=== PATIENT | female | born 1980 | race Caucasian/White ===

== ENCOUNTER 2016-07-20 21:52 | Inpatient (IN) ==
[2016-07-20] MEDS ORDERED: diazePAM 10 MG/2 ML SYRINGE IVP STA (22:13)
--- NOTE | 2016-07-20 22:14 | Emergency Department Note ---
Disposition Clinical Impression: Alcohol withdrawal Disposition: Admitted As Inpatient Condition: Good General Adult HPI - General Chief complaint: ED Alcohol Abuse Stated complaint: ETOH detox Time Seen by Provider: 07/20/16 22:09 Source: patient, family Limitations: no limitations - History of Present Illness Pain Scale: 0 - Related Data Home Medications Medication Instructions Recorded Confirmed Escitalopram [Lexapro] 10 mg PO DAILY 04/26/16 05/26/16 Furosemide [Lasix] 80 mg PO QDPC 04/26/16 05/26/16 Lactulose 20 gm PO BID 04/26/16 05/26/16 Spironolactone [Aldactone] 100 mg PO DAILY 04/26/16 05/26/16 hydrOXYzine HCl [Hydroxyzine HCl] 25 mg PO TID 04/26/16 05/26/16 Previous Rx's Medication Instructions Recorded Dicyclomine [Bentyl] 10 - 20 mg PO QID PRN #30 capsule 04/26/16 predniSONE [PredniSONE] 40 mg PO DAILY #10 tablet 05/23/16 Allergies Allergy/AdvReac Type Severity Reaction Status Date / Time Iodinated Contrast- Oral and Allergy Hives Verified 05/23/16 22:53 IV Dye Past Medical History - Past Medical History Medical history: Reports: other Surgical history: Reports: no surgical history Psychiatric history: Reports: anxiety, depression STAIN DIPPER history: Reports: no STAIN DIPPER history - Social History Smoking Status: Former smoker Smokeless Tobacco Status: No Alcohol use: Reports: none, heavy, recent Drug use: Reports: none Physical Exam - General Limitations: no limitations General appearance: alert Course Vital Signs Temperature 98.0 F 07/20/16 21:53 Pulse Rate 88 07/20/16 21:53 Respiratory Rate 16 07/20/16 21:53 Blood Pressure 129/89 07/20/16 21:53 O2 Sat by Pulse Oximetry 95 07/20/16 21:53 Temperature 97.7 F 07/21/16 01:56 Pulse Rate 86 07/21/16 01:56 Respiratory Rate 18 07/21/16 01:56 Blood Pressure 135/85 07/21/16 01:56 O2 Sat by Pulse Oximetry 100 07/21/16 01:56 Oxygen Delivery Oxygen Delivery Room Air Medical Decision Making - Lab Data Result diagrams: 07/20/16 23:00 07/20/16 23:00 Lab Results 07/20/16 07/20/16 07/20/16 Range/Units 23:00 23:00 23:00 WBC 5.1 (4.3-11.1) K/mcL RBC 4.12 (3.82-4.97) M/mcL Hgb 15.0 (11.5-15.4) g/dL Hct 42.2 (35.3-44.9) % MCV 102.4 H (83.0-100.0) fL MCH 36.4 H (28.0-33.3) pg MCHC 35.5 (31.6-35.5) g/dL RDW 13.9 (11.5-14.5) % Plt Count 138 L (140-400) K/mcL MPV 9.6 (9.4-12.4) fL Seg Neutrophils % 25.1 % Lymphocytes % 64.1 % Monocytes % 9.2 % Eosinophils % 0.8 % Basophils % 0.6 % Neutrophils # 1.3 L (1.6-8.9) K/mcL Lymphocytes # 3.3 (0.6-4.6) K/mcL Monocytes # 0.5 (0.0-1.3) K/mcL Eosinophils # 0.0 (0.0-0.6) K/mcL Basophils # 0.0 (0.0-0.2) K/mcL Sodium 143 (136-145) mEq/L Potassium 3.2 L (3.5-4.5) mEq/L Chloride 110 H (98-109) mEq/L Carbon Dioxide 20 (19-29) mEq/L BUN 4 L (7-20) mg/dL Creatinine 0.74 (0.57-1.11) mg/dL Est GFR ( Amer) > 60 (> 60) Est GFR (Non-Af Amer) > 60 (> 60) BUN/Creatinine Ratio 5 L (6-26) Glucose 109 H (70-99) mg/dL Calculated Osmolality 293 (280-300) Calcium 8.8 (8.6-10.8) mg/dL Magnesium 1.6 (1.6-2.6) mg/dL Total Bilirubin 0.5 (0.2-1.2) mg/dL AST 44 H (5-34) Units/L ALT 30 (0-55) Units/L Alkaline Phosphatase 122 (38-126) Units/L Serum Total Protein 6.6 (6.0-8.3) g/dL Albumin 3.3 L (3.5-5.0) g/dL Globulin 3.3 (2.4-3.5) g/dL Albumin/Globulin Ratio 1.0 L (1.1-2.2) Serum , Qual (Negative) Ethyl Alcohol (0-10) mg/dL 07/20/16 07/20/16 Range/Units 23:00 23:00 WBC (4.3-11.1) K/mcL RBC (3.82-4.97) M/mcL Hgb (11.5-15.4) g/dL Hct (35.3-44.9) % MCV (83.0-100.0) fL MCH (28.0-33.3) pg MCHC (31.6-35.5) g/dL RDW (11.5-14.5) % Plt Count (140-400) K/mcL MPV (9.4-12.4) fL Seg Neutrophils % % Lymphocytes % % Monocytes % % Eosinophils % % Basophils % % Neutrophils # (1.6-8.9) K/mcL Lymphocytes # (0.6-4.6) K/mcL Monocytes # (0.0-1.3) K/mcL Eosinophils # (0.0-0.6) K/mcL Basophils # (0.0-0.2) K/mcL Sodium (136-145) mEq/L Potassium (3.5-4.5) mEq/L Chloride (98-109) mEq/L Carbon Dioxide (19-29) mEq/L BUN (7-20) mg/dL Creatinine (0.57-1.11) mg/dL Est GFR ( Amer) (> 60) Est GFR (Non-Af Amer) (> 60) BUN/Creatinine Ratio (6-26) Glucose (70-99) mg/dL Calculated Osmolality (280-300) Calcium (8.6-10.8) mg/dL Magnesium (1.6-2.6) mg/dL Total Bilirubin (0.2-1.2) mg/dL AST (5-34) Units/L ALT (0-55) Units/L Alkaline Phosphatase (38-126) Units/L Serum Total Protein (6.0-8.3) g/dL Albumin (3.5-5.0) g/dL Globulin (2.4-3.5) g/dL Albumin/Globulin Ratio (1.1-2.2) Serum , Qual Negative (Negative) Ethyl Alcohol 360 H (0-10) mg/dL Attestation Statement - Attestation Attestation: I examined this patient and my medical decision-making was reviewed with the CROSSING WATCHMAN/PA/Advanced Practice Nurse/Resident Physician. I agree with the documented findings, disposition and treatment plan as described except to the extent set forth below. [id number] time provided Patient requests alcohol detox. She drinks a fifth of vodka daily for years. She appears intoxicated on exam. Is tearful. Father at bedside.
--- NOTE | 2016-07-20 22:22 | Emergency Department Note ---
Disposition Clinical Impression: Alcohol withdrawal Qualifiers: Complication of substance-induced condition: uncomplicated Qualified Code(s): F10.230 - Alcohol dependence with withdrawal, uncomplicated Disposition: Admitted As Inpatient Condition: Good Alcohol HPI - General Chief Complaint: ED Alcohol Abuse Stated Complaint: ETOH detox Time Seen by Provider: 07/20/16 22:09 Source: patient, family Limitations: no limitations Nursing Notes Reviewed: Yes Vital Signs Reviewed: Yes - History of Present Illness HPI Narrative: 35-year-old female presents to the ED requesting alcohol detoxification. She has a long history over 10 years of alcoholism and drinks every day. She drinks one fifth of vodka every single day. She admits to drinking today. She has a history of alcoholic liver cirrhosis and takes Lasix every day. She denies any history of GI bleeding. She denies any recent vomiting or illness. She denies any new abdominal pain. She denies any fevers or chills. She denies any suicidal or homicidal ideation. In the past she has had some suicidal ideation writing a suicide note was admitted in [place] and was released. Currently she has none of this. She is with her father and he states they already have alcohol rehabilitation set up in [place] but she needs to go through detoxification first. Patient has no other complaints or concerns today. - Related Data Home Medications Medication Instructions Recorded Confirmed Escitalopram [Lexapro] 10 mg PO DAILY 04/26/16 05/26/16 Furosemide [Lasix] 80 mg PO QDPC 04/26/16 05/26/16 Lactulose 20 gm PO BID 04/26/16 05/26/16 Spironolactone [Aldactone] 100 mg PO DAILY 04/26/16 05/26/16 hydrOXYzine HCl [Hydroxyzine HCl] 25 mg PO TID 04/26/16 05/26/16 Previous Rx's Medication Instructions Recorded Dicyclomine [Bentyl] 10 - 20 mg PO QID PRN #30 capsule 04/26/16 predniSONE [PredniSONE] 40 mg PO DAILY #10 tablet 05/23/16 Allergies Allergy/AdvReac Type Severity Reaction Status Date / Time Iodinated Contrast- Oral and Allergy Hives Verified 05/23/16 22:53 IV Dye All systems ED: reviewed and negative except as stated. Constitutional: Denies: fever Cardiovascular: Denies: chest pain Respiratory: Denies: cough, dyspnea Gastrointestinal: Denies: nausea, vomiting, melena, hematochezia Musculoskeletal: Denies: back pain Integumentary: Reports: rash (On her legs from her reported vasculitis) Neurological: Denies: headache, weakness, numbness Psychiatric: Reports: depression. Denies: suicidal thoughts, homicidal thoughts , auditory hallucinations, visual hallucinations Past Medical History - Past Medical History Medical history: Reports: other Surgical history: Reports: no surgical history Psychiatric history: Reports: anxiety, depression INFORMATICS NURSE SPECIALIST history: Reports: no INFORMATICS NURSE SPECIALIST history - Social History Smoking Status: Former smoker Smokeless Tobacco Status: No Alcohol use: Reports: none, heavy, recent Drug use: Reports: none Physical Exam General: Patient is intermittently tearful but alert and oriented Cardiovascular: Regular rate and rhythm. S1, S2. No murmurs, rubs or gallops. Respiratory: Breath sounds clear bilaterally. No wheezing, rales or rhonchi. No resp distress Abdomen: Abdomen is soft without any guarding, rebound or rigidity. She does have some mild right upper quadrant tenderness with a palpable liver edge. Negative Brooks's. Normal bowel sounds throughout. No signs of trauma Eyes: Conjunctiva clear without scleral icterus, pupils equally reactive without any nystagmus HENT: Normocephalic, no signs of head injury. No oral mucosal lesions. Moist mucous membranes Neuro: No facial asymmetry, stands and inability to independently Musculoskeletal: No joint tenderness or swelling Skin: On the lower extremity there are small less than 2 mm scab-type lesions without any signs of saline as her infection. Psych: Tearful, depressed, withdrawn - General Limitations: no limitations General appearance: alert Course Course Narrative: Presents requesting alcohol detoxification so she can get into her rehabilitation that already set up in [place]. She drank today and her alcohol level was about 0.35. She has been given Ativan and Valium in the ED. She has been comfortable. She reports last time she with through from alcohol she had a seizure and I feel inpatient management is safest for her. Labs including CBC, BMP unremarkable. She did have a slight macrocytosis likely from Thiamine deficiency and she was given a banana bag. Discussed with the hospitalist who accepts for admission. Vital Signs Temperature 98.0 F 07/20/16 21:53 Pulse Rate 88 07/20/16 21:53 Respiratory Rate 16 07/20/16 21:53 Blood Pressure 129/89 07/20/16 21:53 O2 Sat by Pulse Oximetry 95 07/20/16 21:53 Temperature 98.0 F 07/21/16 01:04 Pulse Rate 88 07/20/16 21:53 Respiratory Rate 16 07/21/16 01:04 Blood Pressure 129/89 07/21/16 01:04 O2 Sat by Pulse Oximetry 95 07/20/16 21:53 Oxygen Delivery Oxygen Delivery Room Air Alcohol - Lab Data Result diagrams: 07/20/16 23:00 07/20/16 23:00 Lab Results 07/20/16 07/20/16 07/20/16 Range/Units 23:00 23:00 23:00 WBC 5.1 (4.3-11.1) K/mcL RBC 4.12 (3.82-4.97) M/mcL Hgb 15.0 (11.5-15.4) g/dL Hct 42.2 (35.3-44.9) % MCV 102.4 H (83.0-100.0) fL MCH 36.4 H (28.0-33.3) pg MCHC 35.5 (31.6-35.5) g/dL RDW 13.9 (11.5-14.5) % Plt Count 138 L (140-400) K/mcL MPV 9.6 (9.4-12.4) fL Seg Neutrophils % 25.1 % Lymphocytes % 64.1 % Monocytes % 9.2 % Eosinophils % 0.8 % Basophils % 0.6 % Neutrophils # 1.3 L (1.6-8.9) K/mcL Lymphocytes # 3.3 (0.6-4.6) K/mcL Monocytes # 0.5 (0.0-1.3) K/mcL Eosinophils # 0.0 (0.0-0.6) K/mcL Basophils # 0.0 (0.0-0.2) K/mcL Sodium 143 (136-145) mEq/L Potassium 3.2 L (3.5-4.5) mEq/L Chloride 110 H (98-109) mEq/L Carbon Dioxide 20 (19-29) mEq/L BUN 4 L (7-20) mg/dL Creatinine 0.74 (0.57-1.11) mg/dL Est GFR ( Amer) > 60 (> 60) Est GFR (Non-Af Amer) > 60 (> 60) BUN/Creatinine Ratio 5 L (6-26) Glucose 109 H (70-99) mg/dL Calculated Osmolality 293 (280-300) Calcium 8.8 (8.6-10.8) mg/dL Magnesium 1.6 (1.6-2.6) mg/dL Total Bilirubin 0.5 (0.2-1.2) mg/dL AST 44 H (5-34) Units/L ALT 30 (0-55) Units/L Alkaline Phosphatase 122 (38-126) Units/L Serum Total Protein 6.6 (6.0-8.3) g/dL Albumin 3.3 L (3.5-5.0) g/dL Globulin 3.3 (2.4-3.5) g/dL Albumin/Globulin Ratio 1.0 L (1.1-2.2) Serum , Qual (Negative) Ethyl Alcohol (0-10) mg/dL 07/20/16 07/20/16 Range/Units 23:00 23:00 WBC (4.3-11.1) K/mcL RBC (3.82-4.97) M/mcL Hgb (11.5-15.4) g/dL Hct (35.3-44.9) % MCV (83.0-100.0) fL MCH (28.0-33.3) pg MCHC (31.6-35.5) g/dL RDW (11.5-14.5) % Plt Count (140-400) K/mcL MPV (9.4-12.4) fL Seg Neutrophils % % Lymphocytes % % Monocytes % % Eosinophils % % Basophils % % Neutrophils # (1.6-8.9) K/mcL Lymphocytes # (0.6-4.6) K/mcL Monocytes # (0.0-1.3) K/mcL Eosinophils # (0.0-0.6) K/mcL Basophils # (0.0-0.2) K/mcL Sodium (136-145) mEq/L Potassium (3.5-4.5) mEq/L Chloride (98-109) mEq/L Carbon Dioxide (19-29) mEq/L BUN (7-20) mg/dL Creatinine (0.57-1.11) mg/dL Est GFR ( Amer) (> 60) Est GFR (Non-Af Amer) (> 60) BUN/Creatinine Ratio (6-26) Glucose (70-99) mg/dL Calculated Osmolality (280-300) Calcium (8.6-10.8) mg/dL Magnesium (1.6-2.6) mg/dL Total Bilirubin (0.2-1.2) mg/dL AST (5-34) Units/L ALT (0-55) Units/L Alkaline Phosphatase (38-126) Units/L Serum Total Protein (6.0-8.3) g/dL Albumin (3.5-5.0) g/dL Globulin (2.4-3.5) g/dL Albumin/Globulin Ratio (1.1-2.2) Serum , Qual Negative (Negative) Ethyl Alcohol 360 H (0-10) mg/dL - EKG Data EKG results narrative: EKG shows a sinus rhythm with a rate of 80 beats a minute. No ST changes. No ischemic T-wave changes. Normal intervals.
[2016-07-20] MEDS ORDERED: Thiamine (B-1) 100 MG, Folic Acid 1 MG, MVI, adult with vitamin K 10 ML in 0.9 % Sodi... IVPB SCH (23:00)
[2016-07-20] MEDS: Thiamine (B-1) 100 MG, Folic Acid 1 MG, MVI, adult with vitamin K 10 ML in 0.9 % Sodi... IVPB SCH (23:35)
[2016-07-20 23:36] LABS: Hematocrit 42.2 % (35.3-44.9); Mean Corpuscular HGB Conc 35.5 g/dL (31.6-35.5); Mean Corpuscular Hemoglobin 36.4 pg (28.0-33.3); Mean Corpuscular Volume 102.4 fL (83.0-100.0); Mean Platelet Volume 9.6 fL (9.4-12.4); Neutrophils # 1.3 K/mcL (1.6-8.9); Platelet Count 138 K/mcL (140-400); Red Blood Count 4.12 M/mcL (3.82-4.97); Red Cell Distribution Width 13.9 % (11.5-14.5); Segmented Neutrophils % 25.1 %
[2016-07-20 23:37] LABS: Basophils % 0.6 %; Eosinophils % 0.8 %; Lymphocytes # 3.3 K/mcL (0.6-4.6); Lymphocytes % 64.1 %; Monocytes # 0.5 K/mcL (0.0-1.3); Monocytes % 9.2 %
[2016-07-21 00:13] LABS: Alanine Aminotransferase 30 Units/L (0-55); Alkaline Phosphatase 122 Units/L (38-126); Aspartate Amino Transferase 44 Units/L (5-34); BUN/Creatinine Ratio 5 (6-26); Bilirubin,Total 0.5 mg/dL (0.2-1.2); Blood Urea Nitrogen 4 mg/dL (7-20); Calcium 8.8 mg/dL (8.6-10.8); Carbon Dioxide 20 mEq/L (19-29); Chloride 110 mEq/L (98-109); Glucose 109 mg/dL (70-99); Osmolality,Calculated 293 (280-300); Potassium 3.2 mEq/L (3.5-4.5); Sodium 143 mEq/L (136-145); Total Protein 6.6 g/dL (6.0-8.3); eGFR For African Americans > 60 (> 60); eGFR For Non-African Americans > 60 (> 60)
[2016-07-21 00:14] LABS: Albumin 3.3 g/dL (3.5-5.0); Globulin 3.3 g/dL (2.4-3.5)
[2016-07-21] MEDS ORDERED: *HR* LORazepam 2 MG/ML VIAL IVP ONE (00:34)
[2016-07-21] MEDS ORDERED: *HR* LORazepam 2 MG/ML VIAL IVP PRN ×2 (02:32→18:50)
--- NOTE | 2016-07-21 02:37 | Internal Med History&Physical ---
Date of Encounter: 07/21/16 Time of Encounter: 02:33 Assessment and Plan (1) Alcohol withdrawal Current visit: Yes Status: Acute Patient will be started on CIWA protocol. Seizure precautions. Telemetry monitoring. Give the patient thiamine and folic acid. Hydrate with normal saline 75 mls an hour. She hypokalemia and that will be replaced. She received heparin and famotidine for DVT and peptic ulcer disease prophylaxis respectively. Qualifiers: Complication of substance-induced condition: uncomplicated Qualified Code(s ): F10.230 - Alcohol dependence with withdrawal, uncomplicated Internal Medicine - H&P: HPI Chief complaint: alcohol withdrawal History of present illness: Ms. Carmona is a 35 year old female with an alcoholic drinks a pint of vodka every day presents to the emergency room today for help with alcohol withdrawal. Patient is willing to go to rehab facility but the requesting patient was thereafter being hospitalized for the initial withdrawal period. Patients usually starts with wrong within 4 hours after last drink. Last link is about 6 PM 8 hours prior to my interview. Patient is having shakiness. She mentioned that she had a similar hospitalization at the outside facility for similar purposes. She was hospitalized there for 5 days for alcohol withdrawal. Mentioned that course was complicated by seizure. Unfortunately after she went home to start drinking alcohol again. She mentioned that this time she is motivated with alcohol. She denies any suicidal thoughts. Denies any reason febrile illness. Past Med Surg Social Fam HX - Past Medical History Medical history: other Psychiatric history: anxiety, depression - Past Surgical History Surgical History: no surgical history - Social History Smoking Status: Former smoker Smokeless Tobacco Status: No Alcohol use: none, heavy, recent Drug use: none Internal Medicine - H&P: Meds Dicyclomine [Bentyl] 10 - 20 mg PO QID PRN #30 capsule 04/26/16 [Rx] Escitalopram [Lexapro] 10 mg PO DAILY 04/26/16 [History] Furosemide [Lasix] 80 mg PO QDPC 04/26/16 [History] Lactulose 20 gm PO BID 04/26/16 [History] Spironolactone [Aldactone] 100 mg PO DAILY 04/26/16 [History] hydrOXYzine HCl [Hydroxyzine HCl] 25 mg PO TID 04/26/16 [History] predniSONE [PredniSONE] 40 mg PO DAILY #10 tablet 05/23/16 [Rx] Allergies Iodinated Contrast- Oral and IV Dye Allergy (Verified 05/23/16 22:53) Hives All Systems PM: A 10-system review of systems was performed and is negative for pertinent findings except as documented above in the HPI. Review of systems: 10 point review of systems is negative except for HPI - Constitutional Vitals: Temp Pulse Resp BP Pulse Ox 97.7 F 86 18 135/85 100 07/21/16 01:56 07/21/16 01:56 07/21/16 01:56 07/21/16 01:56 07/21/16 01:56 Exam: Gen.: patient is alert oriented times 3 not in distress cardiac: Normal S1, S2, no additional sounds or murmurs chest: Clear to auscultation Abdomen: Soft, non-tender, non-distended. No rebound lower extremity Lax calf muscles no swelling Neuro: no focal deficits Internal Med - H&P Results - Labs CBC & Chem 7: 07/20/16 23:00 07/20/16 23:00
[2016-07-21] MEDS ORDERED: Water for inj. (sterile) 10 ML IV ONE (02:44)
[2016-07-21] MEDS: *HR* LORazepam 2 MG/ML VIAL IVP PRN ×4 (02:46→23:49)
[2016-07-21] MEDS: Ondansetron 4 MG/2 ML VIAL IVP PRN (02:53)
[2016-07-21] MEDS: Famotidine 20 MG/2 ML VIAL IVP SCH ×2 (05:36→17:46)
[2016-07-21] MEDS: *HR* Heparin 5,000 UNIT/ML VIAL SQ SCH ×2 (05:36→17:46)
[2016-07-21] MEDS: D5% in 0.9% NACL 1,000 ML IVC SCH (05:37)
[2016-07-21] MEDS: Folic Acid 1 MG TABLET PO SCH (08:06)
[2016-07-21] MEDS: Thiamine (B-1) 100 MG, Folic Acid 1 MG, MVI, adult with vitamin K 10 ML in 0.9 % Sodi... IVPB SCH (17:45)
[2016-07-21] MEDS ORDERED: Thiamine (B-1) 100 MG, Folic Acid 1 MG, MVI, adult with vitamin K 10 ML in 0.9 % Sodi... IVPB SCH (18:00)
--- NOTE | 2016-07-21 18:49 | Event Note ---
Date of Encounter: 07/21/16 Time of Encounter: 10:30 Patient seen and examined. On examination, patient initially asleep but awakened easily to voice. Patient stating she feels very fatigued. She states that her hands are shaking but otherwise she is feeling okay. I have received her medical records from [facility]. She was admitted for SI and alcohol intoxication from 06/28/16 until 07/05/16. She had a multidisciplinary team treatment during that admission. There were no documentations of her having DTs or any seizures. Unfortunately, patient relapsed on alcohol shortly after discharge. She states that she is motivated to stop drinking. Hypotension noted, treating with IV fluids. Hypokalemia also noted in his being addressed. Patient drinks a pint of vodka daily, will initiate Librium at this time and monitor very closely. Seizure precautions.
[2016-07-22] MEDS: *HR* Heparin 5,000 UNIT/ML VIAL SQ SCH ×2 (05:29→17:52)
[2016-07-22] MEDS: Famotidine 20 MG/2 ML VIAL IVP SCH ×2 (05:36→16:55)
[2016-07-22] MEDS: *HR* LORazepam 2 MG/ML VIAL IVP PRN ×2 (05:45→16:56)
[2016-07-22 06:53] LABS: Basophils % 0.3 %; Mean Platelet Volume 10.3 fL (9.4-12.4); Red Cell Distribution Width 13.2 % (11.5-14.5)
[2016-07-22 06:56] LABS: Eosinophils % 0.8 %; Hematocrit 38.5 % (35.3-44.9); Hemoglobin 13.5 g/dL (11.5-15.4); Immature Platelets 4.2 % (1.1-6.1); Lymphocytes # 2.1 K/mcL (0.6-4.6); Lymphocytes % 54.9 %; Mean Corpuscular HGB Conc 35.1 g/dL (31.6-35.5); Mean Corpuscular Hemoglobin 36.3 pg (28.0-33.3); Mean Corpuscular Volume 103.5 fL (83.0-100.0); Monocytes # 0.4 K/mcL (0.0-1.3); Monocytes % 10.4 %; Neutrophils # 1.3 K/mcL (1.6-8.9); Red Blood Count 3.72 M/mcL (3.82-4.97); Segmented Neutrophils % 33.6 %
[2016-07-22 07:10] LABS: BUN/Creatinine Ratio 9 (6-26); Calcium 8.1 mg/dL (8.6-10.8); Carbon Dioxide 24 mEq/L (19-29); Chloride 108 mEq/L (98-109); Glucose 73 mg/dL (70-99); Osmolality,Calculated 284 (280-300); Sodium 139 mEq/L (136-145); eGFR For African Americans > 60 (> 60); eGFR For Non-African Americans > 60 (> 60)
[2016-07-22 07:13] LABS: Blood Urea Nitrogen 5 mg/dL (7-20)
[2016-07-22 07:39] LABS: Platelet Count 95 K/mcL (140-400)
[2016-07-22 07:42] LABS: Platelet Estimate Decreased (Normal)
[2016-07-22] MEDS: D5% in 0.9% NACL 1,000 ML IVC SCH ×2 (09:25→09:31)
[2016-07-22] MEDS: Folic Acid 1 MG TABLET PO SCH (09:31)
--- NOTE | 2016-07-22 12:34 | Electrocardiograph Report ---
[place] [id number] Test Date: 2016-07-20 Pat Name: Mecca Carmona Department: 105 Room: 3B Gender: F Quotation Clerk: KIRBY : 1980 Requested By: Saul Haskins Order Number: [id number] Reading MD: Jose Gray Measurements Intervals [place] Rate: 80 P: 42 MI: 180 QRS: -14 QRSD: 100 T: 32 QT: 393 QTc: 429 Interpretive Statements SINUS RHYTHM WITH SINUS ARRHYTHMIA Electronically Signed On 07-22-2016 12:32:58 EDT by Jose Gray
[2016-07-22] MEDS: Ondansetron 4 MG/2 ML VIAL IVP PRN (13:00)
--- NOTE | 2016-07-22 16:30 | Internal Med Progress Note ---
Date of Encounter: 07/22/16 Time of Encounter: 10:30 - Assessment and plan (1) Alcohol withdrawal Current Visit: Yes Status: Acute Assessment and plan: Patient stating this is day 2 since she has last drank. She states she is feeling better today and she has been able to eat. Started her on Librium yesterday, appears to be beneficial as her tremors have lessened since yesterday. She is getting regular doses of lorazepam. We will continue to monitor her CIWA scoring closely and maintain seizure precautions and aspiration precautions. Hypotension resolved, continue IV fluids. I have received her medical records from [facility]. She was admitted for SI and alcohol intoxication from 06/28/16 until 07/05/16. She had a multidisciplinary team treatment during that admission. There were no documentations of her having DTs or any seizures. Unfortunately, patient relapsed on alcohol shortly after discharge. She states that she is motivated to stop drinking. Patient drinks a pint of vodka daily, Librium was initiated yesterday. Qualifiers: Complication of substance-induced condition: uncomplicated Qualified Code(s ): F10.230 - Alcohol dependence with withdrawal, uncomplicated (2) Hypokalemia Current Visit: Yes Status: Resolved (3) DVT prophylaxis Current Visit: Yes Status: Acute Assessment and plan: Subcutaneous heparin - Subjective Interval history: Patient seen and examined. On examination, patient asleep in bed. Patient awakened easily to voice and stated that she was starting to feel better. She states she ate breakfast. - Constitutional Vitals: Temp Pulse Resp BP Pulse Ox 98.1 F 63 16 110/74 98 07/22/16 15:34 07/22/16 15:34 07/22/16 15:34 07/22/16 15:34 07/22/16 15:34 General appearance: Present: A&O X 3, pleasant, no acute distress, answers questions appropriately - Head Head exam: Present: atraumatic, normocephalic - Eye Eye exam: Present: PERRL, conjuntiva pink, sclera anicteric Pupils: Present: PERRL - Neck Neck exam general surgery: Present: supple, trachea midline. Absent: lymphadenopathy - Respiratory Respiratory exam: Present: decreased breath sounds. Absent: accessory muscle use, rales, respiratory distress, rhonchi, wheezes - Cardiovascular Cardiovascular exam: Present: RRR, +S1, +S2. Absent: diastolic murmur, gallop, rubs, systolic murmur - GI/Abdominal GI/Abdominal exam: Present: normal bowel sounds, soft, no peritoneal signs. Absent: distended, tenderness - Extremities Exam Extremities exam: Present: warm, radial pulses palpable and symetrical. Absent : calf tenderness, cyanotic, pedal edema - Neurological Exam Neurological exam: Present: alert, CN II-XII intact, oriented X3, no focal deficits, strengths equal and symetr throughout. Absent: pronater drift, facial droop, speech deficit - Skin Skin exam: Present: dry, intact, pallor, warm Internal Medicine: Result - Labs CBC & Chem 7: 07/22/16 06:15 07/22/16 06:15 Labs: Short CBC 07/22/16 Range/Units 06:15 WBC 3.9 L (4.3-11.1) K/mcL Hgb 13.5 D (11.5-15.4) g/dL Hct 38.5 (35.3-44.9) % Plt Count 95 L (140-400) K/mcL Neutrophils # 1.3 L (1.6-8.9) K/mcL BMP 07/22/16 06:15 Sodium 139 Potassium 4.0 Chloride 108 Carbon Dioxide 24 BUN 5 L Creatinine 0.58 Glucose 73 Calcium 8.1 L Consult Discharge Plan - Plan Referrals: LEIA LICEA D.O. [Primary Care Provider] -
[2016-07-22] MEDS: Thiamine (B-1) 100 MG, Folic Acid 1 MG, MVI, adult with vitamin K 10 ML in 0.9 % Sodi... IVPB SCH (16:55)
[2016-07-22] MEDS ORDERED: Ibuprofen 400 MG TABLET PO ONE (19:55)
[2016-07-23] MEDS: *HR* LORazepam 2 MG/ML VIAL IVP PRN ×4 (00:29→18:58)
[2016-07-23 04:53] LABS: Basophils % 0.5 %; Hematocrit 36.7 % (35.3-44.9); Hemoglobin 12.7 g/dL (11.5-15.4); Immature Granulocytes % 0.3 % (0-4); Immature Platelets 4.3 % (1.1-6.1); Lymphocytes # 1.8 K/mcL (0.6-4.6); Lymphocytes % 45.9 %; Mean Corpuscular HGB Conc 34.6 g/dL (31.6-35.5); Mean Corpuscular Hemoglobin 36.2 pg (28.0-33.3); Mean Corpuscular Volume 104.6 fL (83.0-100.0); Mean Platelet Volume 10.4 fL (9.4-12.4); Monocytes # 0.3 K/mcL (0.0-1.3); Monocytes % 8.3 %; Neutrophils # 1.8 K/mcL (1.6-8.9); Red Blood Count 3.51 M/mcL (3.82-4.97); Red Cell Distribution Width 13.5 % (11.5-14.5)
[2016-07-23 04:54] LABS: Platelet Count 89 K/mcL (140-400)
[2016-07-23 05:06] LABS: Albumin 2.8 g/dL (3.5-5.0); BUN/Creatinine Ratio 8 (6-26); Calcium 8.5 mg/dL (8.6-10.8); Carbon Dioxide 24 mEq/L (19-29); Chloride 107 mEq/L (98-109); Glucose 69 mg/dL (70-99); Osmolality,Calculated 280 (280-300); Potassium 3.7 mEq/L (3.5-4.5); Sodium 137 mEq/L (136-145); eGFR For African Americans > 60 (> 60); eGFR For Non-African Americans > 60 (> 60)
[2016-07-23] MEDS: *HR* Heparin 5,000 UNIT/ML VIAL SQ SCH ×2 (05:06→18:11)
[2016-07-23 05:08] LABS: Blood Urea Nitrogen 5 mg/dL (7-20)
[2016-07-23] MEDS: Famotidine 20 MG/2 ML VIAL IVP SCH ×2 (05:57→18:11)
[2016-07-23] MEDS: Folic Acid 1 MG TABLET PO SCH (08:06)
[2016-07-23] MEDS ORDERED: Furosemide 20 MG/2 ML VIAL IVP ONE (08:46)
--- NOTE | 2016-07-23 10:01 | Internal Med Progress Note ---
Date of Encounter: 07/23/16 Time of Encounter: 09:15 - Assessment and plan (1) Alcohol withdrawal Current Visit: Yes Status: Acute Assessment and plan: Now on day 3 since her last drink. She states she had a rough night and was not able to sleep. Attempted Ambien last night without relief. Will give 4mg ativan at HS tonight if needed. She is still tolerating a regular diet. Mild pedal edema noted- IVF stopped and a one time dose of furosemide was given. She is on furosemide and spironolactone at home- holding these for now, will monitor fluid status. Continue Librium with IV Ativan as needed. Continue CIWA scoring with seizure precautions. Blood pressure is more stable today and she is currently normotensive. I have received her medical records from [facility]. She was admitted for SI and alcohol intoxication from 06/28/16 until 07/05. She had a multidisciplinary team treatment during that admission. There were no documentations of her having DTs or any seizures. Unfortunately, patient relapsed on alcohol shortly after discharge. She states that she is motivated to stop drinking and has a list of resources and she is going to call a place in the am. Patient drinks a pint of vodka daily. Qualifiers: Complication of substance-induced condition: uncomplicated Qualified Code(s ): F10.230 - Alcohol dependence with withdrawal, uncomplicated (2) Hypokalemia Current Visit: Yes Status: Resolved (3) DVT prophylaxis Current Visit: Yes Status: Acute Assessment and plan: Subcutaneous heparin (4) Lower extremity edema Current Visit: Yes Status: Acute Assessment and plan: mild; non pitting. IVF stopped and she was given a one time dose of IV lasix. Unclear why she is on Lasix and Spironolactone at home. Lungs remain clear to auscultation bilaterally. No ascites or other signs of fluid overload- will monitor. - Subjective Interval history: Patient seen and examined. On examination, patient resting supine in bed. She states she had a rough night and did not sleep very well. She states her shakiness is slightly better. She states she ate her breakfast and is endorsing a normal PO intake. She is looking over her list of resources, and is going to call a place in the am tomorrow. - Constitutional Vitals: Temp Pulse Resp BP Pulse Ox 97.9 F 83 16 122/81 98 07/23/16 06:55 07/23/16 06:55 07/23/16 06:55 07/23/16 06:55 07/23/16 06:55 General appearance: Present: A&O X 3, pleasant, no acute distress, answers questions appropriately - Head Head exam: Present: atraumatic, normocephalic - Eye Eye exam: Present: PERRL, conjuntiva pink, sclera anicteric Pupils: Present: PERRL - Neck Neck exam general surgery: Present: supple, trachea midline. Absent: lymphadenopathy - Respiratory Respiratory exam: Present: CTAB. Absent: accessory muscle use, rales, respiratory distress, rhonchi, wheezes - Cardiovascular Cardiovascular exam: Present: RRR, +S1, +S2. Absent: diastolic murmur, gallop, rubs, systolic murmur - GI/Abdominal GI/Abdominal exam: Present: normal bowel sounds, soft, no peritoneal signs. Absent: distended, tenderness - Extremities Exam Extremities exam: Present: pedal edema, warm, radial pulses palpable and symetrical. Absent: calf tenderness, cyanotic - Neurological Exam Neurological exam: Present: alert, CN II-XII intact, normal gait, oriented X3, no focal deficits, strengths equal and symetr throughout. Absent: pronater drift, facial droop, speech deficit - Skin Skin exam: Present: dry, intact, pallor, warm Internal Medicine: Result - Labs CBC & Chem 7: 07/23/16 04:03 07/23/16 04:03 Labs: Short CBC 07/23/16 Range/Units 04:03 WBC 4.0 L (4.3-11.1) K/mcL Hgb 12.7 (11.5-15.4) g/dL Hct 36.7 (35.3-44.9) % Plt Count 89 L (140-400) K/mcL Neutrophils # 1.8 (1.6-8.9) K/mcL BMP 07/23/16 04:03 Sodium 137 Potassium 3.7 Chloride 107 Carbon Dioxide 24 BUN 5 L Creatinine 0.61 Glucose 69 L Calcium 8.5 L Liver Function 07/23/16 Range/Units 04:03 Albumin 2.8 L (3.5-5.0) g/dL Consult Discharge Plan - Plan Referrals: LEIA LICEA D.O. [Primary Care Provider] -
[2016-07-23] MEDS ORDERED: *HR* LORazepam 2 MG/ML VIAL IVP PRN (10:28)
[2016-07-23] MEDS: Lactulose Oral Soln 20 GM/30 ML UDC PO SCH ×2 (12:47→21:29)
[2016-07-23] MEDS: hydrOXYzine pamoate 25 MG CAPSULE PO SCH ×3 (15:28→21:29)
[2016-07-23] MEDS: Thiamine (B-1) 100 MG, Folic Acid 1 MG, MVI, adult with vitamin K 10 ML in 0.9 % Sodi... IVPB SCH (18:10)
[2016-07-24] MEDS ORDERED: Water for inj. (sterile) 10 ML IV ONE ×2 (00:33→05:05)
[2016-07-24] MEDS: *HR* LORazepam 2 MG/ML VIAL IVP PRN ×3 (00:34→09:46)
[2016-07-24 01:58] LABS: Bilirubin,Urine Negative (Negative); Blood,Urine Large (Negative); Clarity,Urine Clear (Clear); Color,Urine Yellow (Yellow); Glucose,Urine (UA) Normal (Normal); Ketones,Urine Negative (Negative); Leukocyte Esterase,Urine Negative (Negative); Nitrite,Urine Negative (Negative); Protein,Urine Negative (Neg-Trace); Specific Gravity,Urine 1.008 (1.010-1.025); Urobilinogen,Urine Normal (Normal)
[2016-07-24 02:01] LABS: Bacteria,Urine Few per hpf (None-Few); Hyaline Casts,Urine None Seen per lpf (None-Few); RBC,Urine 15-30 per hpf (0-3); Squamous Epithelial Cell,Urine Many per lpf (None-Few); WBC,Urine 0-3 per hpf (0-3)
[2016-07-24 04:57] LABS: BUN/Creatinine Ratio 12 (6-26); Blood Urea Nitrogen 8 mg/dL (7-20); Calcium 9.5 mg/dL (8.6-10.8); Carbon Dioxide 23 mEq/L (19-29); Chloride 106 mEq/L (98-109); Glucose 79 mg/dL (70-99); Osmolality,Calculated 281 (280-300); Potassium 4.3 mEq/L (3.5-4.5); Sodium 137 mEq/L (136-145); eGFR For African Americans > 60 (> 60); eGFR For Non-African Americans > 60 (> 60)
[2016-07-24] MEDS: *HR* Heparin 5,000 UNIT/ML VIAL SQ SCH ×2 (06:29→18:37)
[2016-07-24] MEDS: Famotidine 20 MG/2 ML VIAL IVP SCH ×2 (06:30→18:38)
[2016-07-24] MEDS: Folic Acid 1 MG TABLET PO SCH (09:45)
[2016-07-24] MEDS: Ondansetron 4 MG/2 ML VIAL IVP PRN (09:46)
[2016-07-24] MEDS: Lactulose Oral Soln 20 GM/30 ML UDC PO SCH ×2 (09:46→20:20)
[2016-07-24] MEDS: hydrOXYzine pamoate 25 MG CAPSULE PO SCH ×3 (09:47→23:33)
[2016-07-24] MEDS ORDERED: *HR* LORazepam 2 MG/ML VIAL IVP PRN (12:16)
--- NOTE | 2016-07-24 16:46 | Internal Med Progress Note ---
Date of Encounter: 07/24/16 Time of Encounter: 10:30 - Assessment and plan (1) Alcohol withdrawal Current Visit: Yes Status: Acute Assessment and plan: Now on day 4 since her last drink. She states she slept much better last night. She is still tolerating a regular diet. Mild pedal edema noted yesterday and her IVFs were stopped and a one time dose of furosemide was given. Pedal edema has resolved. She is on furosemide and spironolactone at home- holding these for now, will monitor fluid status. Continue Librium with IV Ativan as needed although need to decrease and stop the Ativan usage to ensure that she'll be seizure-free upon discharge. Continue CIWA scoring with seizure precautions. Blood pressure is more stable today and she is currently normotensive. I have received her medical records from [facility]. She was admitted for SI and alcohol intoxication from 06/28/16 until 07/05/16. She had a multidisciplinary team treatment during that admission. There were no documentations of her having DTs or any seizures. Unfortunately, patient relapsed on alcohol shortly after discharge. She states that she is motivated to stop drinking and has a list of resources and she states she has decided on a place in [place] that will take her in 2 weeks. She states this will give her enough time to get her affairs in order prior to the transfer. Patient drinks a pint of vodka daily. Will observe overnight, and likely discharge tomorrow pending clinical outcomes. Qualifiers: Complication of substance-induced condition: uncomplicated Qualified Code(s ): F10.230 - Alcohol dependence with withdrawal, uncomplicated (2) Hypokalemia Current Visit: Yes Status: Resolved (3) DVT prophylaxis Current Visit: Yes Status: Acute Assessment and plan: Subcutaneous heparin (4) Lower extremity edema Current Visit: Yes Status: Resolved - Subjective Interval history: Patient seen and examined. On examination, patient sitting upright in bed talking on the phone with a prospective rehab clinic in [place]. She states that she was to go to rehabilitation in [place] to get a fresh start. She states she is eating and drinking well. She states that she slept well last night. She states she is still very worried about having another seizure. - Constitutional Vitals: Temp Pulse Resp BP Pulse Ox 97.5 F L 79 14 106/74 97 07/24/16 15:10 07/24/16 15:10 07/24/16 15:10 07/24/16 15:10 07/24/16 15:10 General appearance: Present: A&O X 3, pleasant, no acute distress, answers questions appropriately - Head Head exam: Present: atraumatic, normocephalic - Eye Eye exam: Present: PERRL, conjuntiva pink, sclera anicteric Pupils: Present: PERRL - Neck Neck exam general surgery: Present: supple, trachea midline. Absent: lymphadenopathy - Respiratory Respiratory exam: Present: CTAB. Absent: accessory muscle use, rales, respiratory distress, rhonchi, wheezes - Cardiovascular Cardiovascular exam: Present: RRR, +S1, +S2. Absent: diastolic murmur, gallop, rubs, systolic murmur - GI/Abdominal GI/Abdominal exam: Present: normal bowel sounds, soft, no peritoneal signs. Absent: distended, tenderness - Extremities Exam Extremities exam: Present: warm, radial pulses palpable and symetrical. Absent : calf tenderness, cyanotic, pedal edema - Neurological Exam Neurological exam: Present: alert, CN II-XII intact, normal gait, oriented X3, no focal deficits, strengths equal and symetr throughout. Absent: pronater drift, facial droop, speech deficit - Expanded Neurological Exam Neurological exam expanded: Present: protecting the airway Patient oriented to: Present: person, place, time Speech: Present: fluid speech Cranial Nerves: EOM's intact PM: Normal, gag reflex PM: Normal Neuro motor strength exam: LUE: 5, RUE: 5, LLE: 5, RLE: 5 Coma Scale Eye Opening: Spontaneous Coma Scale Motor Response: Obeys Commands Coma Scale Verbal Response: Oriented Coma Scale Total: 15 - Psychiatric Psychiatric exam: Present: normal affect, normal mood. Absent: suicidal ideation - Skin Skin exam: Present: dry, intact, normal color, warm Internal Medicine: Result - Labs CBC & Chem 7: 07/23/16 04:03 07/24/16 04:31 Labs: BMP 07/24/16 04:31 Sodium 137 Potassium 4.3 Chloride 106 Carbon Dioxide 23 BUN 8 Creatinine 0.67 Glucose 79 Calcium 9.5 Urine 07/24/16 Range/Units 01:45 Urine Color Yellow (Yellow) Urine Clarity Clear (Clear) Urine pH 7.0 (5.0-8.0) pH Units Ur Specific [place] 1.008 L (1.010-1.025) Urine Protein Negative (Neg-Trace) mg/dL Urine Glucose (UA) Normal (Normal) mg/dL Consult Discharge Plan - Plan Referrals: LEIA LICEA D.O. [Primary Care Provider] -
[2016-07-25] MEDS: Famotidine 20 MG/2 ML VIAL IVP SCH (06:45)
[2016-07-25] MEDS: *HR* Heparin 5,000 UNIT/ML VIAL SQ SCH ×2 (06:49→17:34)
[2016-07-25] MEDS ORDERED: *HR* LORazepam 2 MG/ML VIAL IVP PRN ×3 (08:42)
--- NOTE | 2016-07-25 08:45 | Internal Med Progress Note ---
Date of Encounter: 07/25/16 Time of Encounter: 08:43 - Assessment and plan (1) Alcohol withdrawal Current Visit: Yes Status: Acute Assessment and plan: Now on day 5 since her last drink. Had an alcohol level of 360 upon admission Continue Librium taper with IV Ativan as needed Admitted to [facility] for SI and alcohol intoxication from 06/28/16 until . She had a multidisciplinary team treatment during that admission. May discharge to a rehabilitation facility in [place] tomorrow if stable High risk due to high alcohol tolerance Qualifiers: Complication of substance-induced condition: uncomplicated Qualified Code(s ): F10.230 - Alcohol dependence with withdrawal, uncomplicated (2) Leukopenia Current Visit: Yes Status: Acute Assessment and plan: Nonspecific Qualifiers: Leukopenia type: other Qualified Code(s): D72.818 - Other decreased white blood cell count (3) Hypokalemia Current Visit: Yes Status: Resolved Assessment and plan: Repleted (4) DVT prophylaxis Current Visit: Yes Status: Acute Assessment and plan: Subcutaneous heparin - Subjective Interval history: Complains of constant shakiness in her hands, according to nursing staff she is being confused at times but is very coherent at the moment oriented 3, denies any pain, no abdominal pain, no dysuria. No fevers. No chest pain or shortness of breath - Constitutional Vitals: Temp Pulse Resp BP Pulse Ox 97.8 F 67 17 111/77 97 07/25/16 07:37 07/25/16 07:37 07/25/16 07:37 07/25/16 07:37 07/25/16 07:37 General appearance: Present: A&O X 3, pleasant, no acute distress, answers questions appropriately - Head Head exam: Present: atraumatic, normocephalic - Eye Eye exam: Present: PERRL, conjuntiva pink, sclera anicteric Pupils: Present: PERRL - Neck Neck exam general surgery: Present: supple, trachea midline. Absent: lymphadenopathy - Respiratory Respiratory exam: Present: CTAB. Absent: accessory muscle use, rales, rhonchi, wheezes - Cardiovascular Cardiovascular exam: Present: RRR, +S1, +S2. Absent: diastolic murmur, gallop, rubs, systolic murmur - GI/Abdominal GI/Abdominal exam: Present: normal bowel sounds, soft, no peritoneal signs. Absent: distended, tenderness - Extremities Exam Extremities exam: Present: warm, radial pulses palpable and symetrical. Absent : calf tenderness, cyanotic, pedal edema Additional comments: Persistent tremors in upper extremities/hands - Neurological Exam Neurological exam: Present: CN II-XII intact, oriented X3, no focal deficits. Absent: pronater drift, facial droop, speech deficit - Skin Skin exam: Present: dry, intact Internal Medicine: Result - Labs CBC & Chem 7: 07/23/16 04:03 07/24/16 04:31 Consult Discharge Plan - Plan Referrals: LEIA LICEA D.O. [Primary Care Provider] -
[2016-07-25] MEDS: Lactulose Oral Soln 20 GM/30 ML UDC PO SCH ×2 (09:51→21:33)
[2016-07-25] MEDS: Thiamine (B-1) 100 MG TABLET PO SCH (09:52)
[2016-07-25] MEDS: Folic Acid 1 MG TABLET PO SCH (09:52)
[2016-07-25] MEDS: hydrOXYzine pamoate 25 MG CAPSULE PO SCH ×3 (09:52→21:32)
[2016-07-25] MEDS: Famotidine 20 MG TABLET PO SCH (17:35)
[2016-07-26] MEDS: *HR* Heparin 5,000 UNIT/ML VIAL SQ SCH (06:13)
[2016-07-26] MEDS: Famotidine 20 MG TABLET PO SCH (06:18)
[2016-07-26 07:18] LABS: Basophils % 0.8 %; Monocytes % 9.8 %
[2016-07-26 07:20] LABS: Eosinophils # 0.1 K/mcL (0.0-0.6); Eosinophils % 0.9 %; Hematocrit 38.6 % (35.3-44.9); Immature Granulocytes % 0.4 % (0-4); Immature Platelets 6.5 % (1.1-6.1); Lymphocytes # 2.1 K/mcL (0.6-4.6); Lymphocytes % 39.6 %; Mean Corpuscular HGB Conc 33.7 g/dL (31.6-35.5); Mean Corpuscular Hemoglobin 36.2 pg (28.0-33.3); Mean Corpuscular Volume 107.5 fL (83.0-100.0); Mean Platelet Volume 10.9 fL (9.4-12.4); Monocytes # 0.5 K/mcL (0.0-1.3); Neutrophils # 2.6 K/mcL (1.6-8.9); Red Blood Count 3.59 M/mcL (3.82-4.97); Red Cell Distribution Width 13.8 % (11.5-14.5); Segmented Neutrophils % 48.5 %
[2016-07-26 07:27] LABS: BUN/Creatinine Ratio 16 (6-26); Blood Urea Nitrogen 11 mg/dL (7-20); Calcium 9.7 mg/dL (8.6-10.8); Carbon Dioxide 22 mEq/L (19-29); Chloride 105 mEq/L (98-109); Glucose 54 mg/dL (70-99); Osmolality,Calculated 279 (280-300); Potassium 4.2 mEq/L (3.5-4.5); Sodium 136 mEq/L (136-145); eGFR For African Americans > 60 (> 60); eGFR For Non-African Americans > 60 (> 60)
[2016-07-26] MEDS: hydrOXYzine pamoate 25 MG CAPSULE PO SCH (08:11)
[2016-07-26] MEDS: Lactulose Oral Soln 20 GM/30 ML UDC PO SCH (08:11)
[2016-07-26] MEDS: Folic Acid 1 MG TABLET PO SCH (08:11)
[2016-07-26] MEDS: Thiamine (B-1) 100 MG TABLET PO SCH (08:12)
[2016-07-26 09:01] LABS: Platelet Count 86 K/mcL (140-400)
--- NOTE | 2016-07-26 09:57 | Discharge Summary ---
Date of Encounter: 07/26/16 Time of Encounter: 09:47 - Discharge Diagnosis (1) Alcohol withdrawal Priority: Primary Status: Acute Qualifiers: Complication of substance-induced condition: uncomplicated Qualified Code(s ): F10.230 - Alcohol dependence with withdrawal, uncomplicated (2) Leukopenia Priority: Secondary Status: Acute Comments: Resolved Qualifiers: Leukopenia type: other Qualified Code(s): D72.818 - Other decreased white blood cell count (3) Hypokalemia Priority: Secondary Status: Resolved Comments: Repleted (4) DVT prophylaxis Priority: Secondary Status: Acute - Discharge Medications Prescriptions: Chlordiazepoxide [Librium] 25 mg PO DAILY 10 Days Folic Acid 1 mg PO DAILY 30 Days hydrOXYzine pamoate [HydrOXYzine Pamoate] 25 mg PO TID #20 capsule Thiamine (B-1) [Vitamin B-1] 100 mg PO DAILY 30 Days Home Medications: Escitalopram [Lexapro] 10 mg PO DAILY 04/26/16 [History] Spironolactone [Aldactone] 100 mg PO DAILY 04/26/16 [History] hydrOXYzine HCl [Hydroxyzine HCl] 25 mg PO TID 04/26/16 [History] Cholecalciferol (Vitamin D3) [Vitamin D3] 1,000 unit PO DAILY 07/21/16 [History] Cyanocobalamin (Vitamin B-12) [Vitamin B12] 1,000 mcg PO DAILY 07/21/16 [History ] Furosemide [Lasix] 40 mg PO DAILY 07/21/16 [History] Pantoprazole Sodium [Protonix] 40 mg PO DAILY 07/21/16 [History] Chlordiazepoxide [Librium] 25 mg PO DAILY 10 Days 07/26/16 [Rx] Folic Acid 1 mg PO DAILY 30 Days 07/26/16 [Rx] Thiamine (B-1) [Vitamin B-1] 100 mg PO DAILY 30 Days 07/26/16 [Rx] hydrOXYzine pamoate [HydrOXYzine Pamoate] 25 mg PO TID #20 capsule 07/26/16 [Rx] Allergies/Adverse Reactions: Allergies Iodinated Contrast- Oral and IV Dye Allergy (Verified 07/21/16 13:58) Difficulty Breathing Date of admission: 07/25/16 10:32 Primary care physician: LEIA LICEA D.O. - Patient Status Disposition: Transfer Inpatient Rehab Fac Condition: Good - Discharge Instructions Follow Up With: LEIA LICEA D.O. [Primary Care Provider] - Additional Instructions: Follow-up with primary care physician within the next 7 days. Continue Librium taper as prescribed. Hydroxyzine as needed. Continue rehabilitation - Diet and Activity Activity: increase activity as tolerated Diet: regular diet Hospital course: Ms. Carmona is a 35 year old female with a past medical history of alcohol abuse, drinks a pint of vodka every day presented to the emergency room for help with alcohol withdrawal. Last drink was about 6 PM 8 hours prior to admission. Patient was shaking. She mentioned that she had a similar hospitalization at the outside facility for similar purposes. She was hospitalized there for 5 days for alcohol withdrawal. Mentioned that course was complicated by seizure. Unfortunately after she went home to start drinking alcohol again. She mentioned that this time she is motivated to stop drinking alcohol. The patient was started on thiamine, folic acid, multivitamins, Librium taper and Ativan as needed. The patient's tremors have a slowly improved, she has been on a high dose of Librium up to 100 mg 3 times a day and will require very slow taper. Patient is willing to go to rehab facility down in [place]. - Time Spent with Patient Total time spent providing and/or coordinating discharge services: Greater than 30 minutes (40 min) - Constitutional Vitals: Temp Pulse Resp BP Pulse Ox 98.2 F 77 17 101/67 98 07/26/16 07:54 07/26/16 07:54 07/26/16 07:54 07/26/16 07:54 07/26/16 07:54 General appearance: Present: A&O X 3, pleasant, no acute distress, answers questions appropriately - Head Head exam: Present: atraumatic, normocephalic - Eye Eye exam: Present: PERRL, conjuntiva pink, sclera anicteric Pupils: Present: PERRL - Neck Neck exam general surgery: Present: supple, trachea midline. Absent: lymphadenopathy - Respiratory Respiratory exam: Present: CTAB. Absent: accessory muscle use, rales, rhonchi, wheezes - Cardiovascular Cardiovascular exam: Present: RRR, +S1, +S2. Absent: diastolic murmur, gallop, rubs, systolic murmur - GI/Abdominal GI/Abdominal exam: Present: normal bowel sounds, soft, no peritoneal signs. Absent: distended, tenderness - Extremities Exam Extremities exam: Present: warm, radial pulses palpable and symetrical. Absent : calf tenderness, cyanotic, pedal edema Additional comments: Essential tremors present in both hands - Neurological Exam Neurological exam: Present: CN II-XII intact, oriented X3, no focal deficits. Absent: pronater drift, facial droop, speech deficit - Skin Skin exam: Present: dry, intact
--- NOTE | 2016-07-26 10:09 | Physician Discharge Referral ---
ExtendedCare Referral Info Provider in Charge after Transfer: PCP Institutional Level of Care: Skilled - Diagnosis (1) Alcohol withdrawal Status: Acute (2) Leukopenia Status: Acute (3) Hypokalemia Status: Resolved (4) DVT prophylaxis Status: Acute - Transfer Medications Prescriptions: Chlordiazepoxide [Librium] 25 mg PO DAILY 10 Days Folic Acid 1 mg PO DAILY 30 Days hydrOXYzine pamoate [HydrOXYzine Pamoate] 25 mg PO TID #20 capsule Thiamine (B-1) [Vitamin B-1] 100 mg PO DAILY 30 Days Home Medications: Escitalopram [Lexapro] 10 mg PO DAILY 04/26/16 [History] Spironolactone [Aldactone] 100 mg PO DAILY 04/26/16 [History] hydrOXYzine HCl [Hydroxyzine HCl] 25 mg PO TID 04/26/16 [History] Cholecalciferol (Vitamin D3) [Vitamin D3] 1,000 unit PO DAILY 07/21/16 [History] Cyanocobalamin (Vitamin B-12) [Vitamin B12] 1,000 mcg PO DAILY 07/21/16 [History ] Furosemide [Lasix] 40 mg PO DAILY 07/21/16 [History] Pantoprazole Sodium [Protonix] 40 mg PO DAILY 07/21/16 [History] Chlordiazepoxide [Librium] 25 mg PO DAILY 10 Days 07/26/16 [Rx] Folic Acid 1 mg PO DAILY 30 Days 07/26/16 [Rx] Thiamine (B-1) [Vitamin B-1] 100 mg PO DAILY 30 Days 07/26/16 [Rx] hydrOXYzine pamoate [HydrOXYzine Pamoate] 25 mg PO TID #20 capsule 07/26/16 [Rx] Allergies/Adverse Reactions: Allergies Iodinated Contrast- Oral and IV Dye Allergy (Verified 07/21/16 13:58) Difficulty Breathing - Respiratory Orders Smoking Cessation: Smoking cessation has been advised. For more information, call the [place] Tobacco Quit Line at 1-073-HDYJ-NOW. - Advance Directives Code Status: Full Code - Mobility Orders Ambulate - Treatments List/Other: Follow-up with primary care physician within the next 7 days. Continue Librium taper as prescribed. Hydroxyzine as needed. Continue rehabilitation. Do not drink alcohol while taking Librium - Diet Orders Regular CERTIFICATION: I certify that the transfer of the above named patient to an Extended Care Facility is necessary for the continuing treatment of the diagnosis listed. The above information is true and accurate reflection of patient's current condition. Confidential - Redisclosure prohibited without a patient's written consent.
[2016-07-26 12:15] VITALS: BP 116/79
== END 2016-07-26 13:00 | DRG 775 ==
LOC: 3BNU 21:52 → EMEROO 21:52 → 3BNU 07-21 01:52
PROVIDERS: ADMIT Internal Medicine; ATTEND Internal Medicine